=== PATIENT | male | born 1990 | race Hispanic/Latino ===

== ENCOUNTER 2016-12-13 10:42 | Emergency (ER) | payer OTHER, SELFPAY ==
[2016-12-13] MEDS ORDERED: Dexamethasone 4 mg/ml Vial ONE (11:03)
== END 2016-12-13 11:05 | disposition home or self-care (01) ==
LOC: BURERS 10:42
DX: L50.9 Urticaria, unspecified (principal); F17.210 Nicotine dependence, cigarettes, uncomplicated
CPT/HCPCS: 99282; J1100

== ENCOUNTER 2017-08-08 00:14 | Emergency (ER) | payer OTHER, SELFPAY ==
[2017-08-08] MEDS ORDERED: HYDROcodone/Acetaminophen 10/325 mg Tablet ONE (00:31)
[2017-08-08 00:35] LABS: Bilirubin Negative (Negative); Blood, Urine Negative (Negative); Clarity Clear (Clear); Glucose, Urine (Dipstick) Negative (Negative); Leukocyte Negative (Negative); Nitrite Negative (Negative); Protein, Urine (Dipstick) Negative (Neg-Trace); Specific Gravity, Urine 1.025 (1.005-1.030); Urobilinogen 0.2 mg/dL (0.2-1.0)
== END 2017-08-08 00:40 | disposition home or self-care (01) ==
LOC: BURERS 00:14
DX: M54.5 Low back pain (principal); F17.210 Nicotine dependence, cigarettes, uncomplicated
CPT/HCPCS: 81003; 99283

== ENCOUNTER 2019-03-12 18:04 | Emergency (ER) | payer OTHER, SELFPAY | END 2019-03-12 18:25 | disposition home or self-care (01) | LOC: BURERS 18:04 | DX: A08.4 Viral intestinal infection, unspecified (principal); F17.210 Nicotine dependence, cigarettes, uncomplicated | CPT/HCPCS: 99283 ==

== ENCOUNTER 2020-04-13 12:52 | Emergency (ER) | payer OTHER ==
[2020-04-13] MEDS ORDERED: Diazepam 5 MG TAB ONE (13:20)
[2020-04-13] MEDS ORDERED: Ketorolac Tromethamine 30 MG/ML VIAL ONE (13:21)
== END 2020-04-13 13:40 | disposition home or self-care (01) ==
LOC: BURERS 12:52
DX: M54.42 Lumbago with sciatica, left side (principal); F17.210 Nicotine dependence, cigarettes, uncomplicated
CPT/HCPCS: 96372; 99283; J1885

== ENCOUNTER 2021-10-10 16:45 | Emergency (ER) | payer OTHER, SELFPAY ==
[2021-10-10] MEDS ORDERED: Ketorolac Tromethamine 60 MG/2 ML VIAL ONE (17:08)
== END 2021-10-10 17:30 | disposition home or self-care (01) ==
LOC: BURERS 16:45
DX: S39.012A Strain of muscle, fascia and tendon of lower back, initial encounter (principal); F17.210 Nicotine dependence, cigarettes, uncomplicated; X58.XXXA Exposure to other specified factors, initial encounter
CPT/HCPCS: 96372; 99283; J1885

== ENCOUNTER 2024-02-27 20:30 | Emergency (ER) | payer OTHER ==
[2024-02-27] MEDS ORDERED: Dexamethasone 10 MG/ML VIAL ONE (21:30)
[2024-02-27] MEDS ORDERED: Ketorolac Tromethamine 30 MG (1 mL) VIAL ONE (21:31)
[2024-02-27] MEDS ORDERED: Morphine 2 MG/ML VIAL ONE (21:31)
[2024-02-27] MEDS ORDERED: Morphine 4 MG/ML VIAL ONE (21:31)
== END 2024-02-27 22:21 | disposition home or self-care (01) ==
LOC: BURERS 20:30
DX: M54.42 Lumbago with sciatica, left side (principal); F17.210 Nicotine dependence, cigarettes, uncomplicated
CPT/HCPCS: 96372; 99283; J1100; J1885; J2270; J2272

== ENCOUNTER 2024-09-22 13:29 | Emergency (ER) | payer OTHER ==
[2024-09-22] MEDS ORDERED: Dexamethasone 10 MG/ML VIAL ONE (14:14)
[2024-09-22] MEDS ORDERED: Ibuprofen 200 MG TAB ONE (14:15)
[2024-09-22] MEDS ORDERED: Acetaminophen 325 MG TAB ONE (14:15)
[2024-09-22] MEDS ORDERED: Gabapentin 300 MG CAP ONE (14:15)
[2024-09-22] MEDS ORDERED: Methocarbamol 500 MG TAB ONE (14:15)
== END 2024-09-22 16:35 | disposition home or self-care (01) ==
LOC: BURERS 13:29
DX: M79.18 Myalgia, other site (principal); F17.210 Nicotine dependence, cigarettes, uncomplicated
CPT/HCPCS: 70450; 72125; 72128; 96372; J1100